=== PATIENT | male | born 1990 | race Hispanic/Latino ===

== ENCOUNTER 2019-08-29 18:24 | Emergency (ER) | payer BC ==
[~2019-08-29] VITALS: Ht 177.8 cm; Wt 113.4 kg
--- NOTE | 2019-08-29 19:18 | NUR ---
TSH LABS GOING TO MAIN LAB AT [facility]; JOIE CALLED
--- NOTE | 2019-08-29 19:37 | Diagnostic Imaging Report ---
EXAMINATION: CXR 2 VIEW - HOPD INDICATION: Chest Pain ^[id number] ^1922 COMPARISON: None FINDINGS: PA and lateral views TUBES and LINES: None. LUNGS: Lungs are well inflated. There is no evidence of pneumonia or pulmonary edema. PLEURA: No pleural effusion or pneumothorax. HEART AND MEDIASTINUM: The cardiomediastinal silhouette is unremarkable.. BONES AND SOFT TISSUES: No focal osseous lesions. Soft tissues are unremarkable. UPPER ABDOMEN: Unremarkable. IMPRESSION: No acute thoracic abnormality. Signed by: Dr. Sohan Nicolas MD on 08/29/2019 7:33 PM
[2019-08-29 20:33] LABS: FREE THYROXINE INDEX 2.5712 (1.4-3.8); THYROID STIMULATING HORMONE 0.426 uIU/mL (0.350-4.940)
== END 2019-08-29 20:46 | disposition home or self-care (01) ==
LOC: FSED 18:24
DX: R07.89 Other chest pain (principal); I10 Essential (primary) hypertension
CPT/HCPCS: 36415; 71046; 84436; 84443; 84479; 93005; 99283

== ENCOUNTER 2019-09-01 09:38 | Emergency (ER) | payer BC ==
[~2019-09-01] VITALS: Ht 177.8 cm; Wt 113.4 kg
--- OUTSIDE RECORDS SUMMARY | 2019-09-01 09:40 | XMS REPORT ---
[facility] Address Unknown Phone Unavailable Care Team Providers Care Side Seam Tender Name Role Phone Merrill ALVA Unavailable Unavailable Problems This patient has no known problems. Allergies, Adverse Reactions, Alerts This patient has no known allergies or adverse reactions. Medications This patient has no known medications. Results Test Description Test Time Test Comments Text Results Atomic Results Result Comments CXR 2 VIEW - HOPD 2019-08-29 19:30:00 [place] [address] Patient Name: DANIA MCKEON MR #: [id number] : 1990 Age/Sex: 29/M Req #: [id number] Adm Physician: Ordered by: DEON ALVA MD Report #: [id number] Location: [facility] Room/Bed: Procedure: [id number] HOPD/CXR 2 VIEW - HOPD Exam Date: 08/29/19 Exam Time: 1922 REPORT STATUS: Signed EXAMINATION: CXR 2 VIEW - HOPD INDICATION: C hest Pain [id number] COMPARISON: None FINDINGS: PA and lateral views TUBES and LINES: None. LUNGS: Lungs are well inflated. There is no evidence of pneumonia or pulmonary edema. PLEURA: No pleural effusion or pneumothorax. HEART AND MEDIASTINUM: The cardiomediastinal silhouette is unremarkable.. BONES AND SOFT TISSUES: No focal osseous lesions. Soft tissues are unremarkable. UPPER ABDOMEN: Unremarkable. IMPRESSION: No acute thoracic abnormality. Signed by: Dr. Rod Nicolas MD on 08/29/2019 7:33 PM Dictated By: ROD NICOLAS MD 32 Transcribed By: LADARIUS on 08/29/191932 COPY TO: DEON ALVA MD
[2019-09-01 10:14] VITALS: BP 132/95
[2019-09-01] MEDS ORDERED: BELLADONNA ALK/PHENOBARBITAL 5 ML UDC PO ONE (10:30)
[2019-09-01] MEDS ORDERED: MAGNESIUM/ALUMINUM/SIMETHICONE 30 ML UDC PO ONE (10:30)
[2019-09-01] MEDS ORDERED: LIDOCAINE VISC 2% SOLN 15 ML UDC PO ONE (10:30)
== END 2019-09-01 10:31 | disposition home or self-care (01) ==
LOC: ER 09:38
DX: R07.89 Other chest pain (principal); F17.210 Nicotine dependence, cigarettes, uncomplicated
CPT/HCPCS: 93005; 99283

== ENCOUNTER 2022-05-21 23:17 | Emergency (ER) | payer SELFPAY ==
[~2022-05-21] VITALS: Ht 167.6 cm; Wt 93.9 kg
[2022-05-21] MEDS ORDERED: CLONIDINE HCL 0.1 MG TAB PO ONE (23:30)
[2022-05-22] MEDS ORDERED: CLONIDINE HCL 0.1 MG TAB ONE (00:10)
[2022-05-22 01:15] VITALS: BP 141/81
== END 2022-05-22 01:15 | disposition home or self-care (01) ==
LOC: FSED 23:23
DX: R07.89 Other chest pain (principal); R00.2 Palpitations; I16.0 Hypertensive urgency; F41.9 Anxiety disorder, unspecified; I10 Essential (primary) hypertension
CPT/HCPCS: 71046; 80053; 82553; 84484; 85025; 93005; 99284

== ENCOUNTER 2023-01-17 21:12 | Emergency (ER) | payer BC ==
[~2023-01-17] VITALS: Ht 167.6 cm; Wt 93.0 kg
[2023-01-17] MEDS ORDERED: SODIUM CHLORIDE 0.9% 1000ML 1,000 ML IV STA (21:28)
[2023-01-17] MEDS ORDERED: KETOROLAC TROMETHAMINE 30 MG/ML VIAL IV ONE (21:30)
[2023-01-17] MEDS ORDERED: ONDANSETRON HCL INJ 2MG/ML 2ML 2 MG/ML VIAL IV ONE (21:30)
[2023-01-17] MEDS ORDERED: SODIUM CHLORIDE 0.9% 1000ML 1,000 ML ONE (21:39)
[2023-01-17] MEDS ORDERED: KETOROLAC TROMETHAMINE 30 MG/ML VIAL ONE (21:39)
[2023-01-17] MEDS ORDERED: ONDANSETRON HCL INJ 2MG/ML 2ML 2 MG/ML VIAL ONE (21:39)
[2023-01-17] MEDS ORDERED: IOPAMIDOL 370 MG/ML 100 ML INFUS..BTL INJ ONE (22:44)
[2023-01-17 23:18] VITALS: BP 159/96
== END 2023-01-17 23:18 | disposition home or self-care (01) ==
LOC: FSED 21:14
DX: R10.30 Lower abdominal pain, unspecified (principal); K59.00 Constipation, unspecified; I10 Essential (primary) hypertension
CPT/HCPCS: 74177; 80053; 81003; 85025; 99283; J1885; J2405; J7030; Q9967